=== PATIENT | male | born 2000 | race Two or more races ===

== ENCOUNTER 2020-08-06 20:06 | Emergency (ER) | payer OTHER ==
[~2020-08-06] VITALS: Ht 175.3 cm; Wt 81.6 kg
[2020-08-06 20:06] VITALS: BP 136/82
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
--- NOTE | 2020-08-06 20:52 | Diagnostic Imaging Report ---
EXAM: CT Head Without Intravenous Contrast CLINICAL HISTORY: TRAUMA TECHNIQUE: Axial computed tomography images of the head/brain without intravenous contrast. CTDI is 53.4 mGy and DLP is 998.8 mGy-cm. One or more of the following dose reduction techniques were used: automated exposure control, adjustment of the mA and/or kV according to patient size, use of iterative reconstruction technique. COMPARISON: No relevant prior studies available. FINDINGS: Brain: Unremarkable. No hemorrhage. No significant white matter disease. No edema. Ventricles: Unremarkable. No ventriculomegaly. Bones/joints: No acute fracture. Soft tissues: Right frontal scalp hematoma/contusion (12: 15). Sinuses: Unremarkable as visualized. Mastoid air cells: No mastoid effusion. IMPRESSION: 1. No acute intracranial traumatic process. 2. Right frontal scalp hematoma/contusion. 3. No acute calvarial fracture.
--- NOTE | 2020-08-06 20:59 | Diagnostic Imaging Report ---
EXAM: CT Maxillofacial Without Intravenous Contrast CLINICAL HISTORY: PAIN TECHNIQUE: Axial computed tomography images of the face without intravenous contrast. CTDI is 15.3 mGy and DLP is 370.5 mGy-cm. One or more of the following dose reduction techniques were used: automated exposure control, adjustment of the mA and/or kV according to patient size, use of iterative reconstruction technique. COMPARISON: No relevant prior studies available. FINDINGS: Bones/joints: No acute fracture or dislocation. Soft tissues: Right frontal scalp hematoma/contusion (white image). Orbits: Unremarkable. Symmetric. Sinuses: Unremarkable. No air-fluid levels. IMPRESSION: 1. No acute fracture or dislocation. 2. Small right frontal scalp hematoma/contusion.
[2020-08-06 21:25] VITALS: BP 136/82
--- NOTE | 2020-08-06 21:25 | NUR ---
ER DISCHARGE NOTE: Patient is cleared to be discharged per ERMD, pt is aox4, on room air, with stable vital signs. D/C instruction given to the officer. pt id band removed without complications. pt is able to ambulate with steady gait. pt took all belongings.
== END 2020-08-06 21:25 ==
LOC: EDBD 20:06 → EMR 21:05
DX: S00.91XA Abrasion of unspecified part of head, initial encounter (principal); S09.90XA Unspecified injury of head, initial encounter; S00.83XA Contusion of other part of head, initial encounter; S80.212A Abrasion, left knee, initial encounter; S80.211A Abrasion, right knee, initial encounter; T14.8XXA Other injury of unspecified body region, initial encounter; I10 Essential (primary) hypertension; X58.XXXA Exposure to other specified factors, initial encounter; Y93.89 Activity, other specified; Y92.9 Unspecified place or not applicable
CPT/HCPCS: 70450; 70486; 99284